=== PATIENT | female | born 1965 | race Caucasian/White ===

== ENCOUNTER 2018-10-26 05:36 | Observation (INO) ==
--- NOTE | 2018-10-21 09:12 | Anesthesiology Consultation ---
Date of Service October 21, 2018 Assessment & Plan (1) Encounter for pre-operative examination: Chart Review Chart Review: Acceptable Risk for Surgery and Patient NOT seen in Pre Admission Testing Consults Requested none History Surgery Operation Date: 10/26/18 11:45 Proposed Procedures p C5-C6 Anterior Cervical Discectomy and Fusion - Jeremy Pugh DO Height/Weight Height: 5 ft 7 in Weight: 95.254 kg Allergies Allergy/AdvReac Type Severity Reaction Status Date / Time No Known Allergies Allergy Unverified 10/20/18 12:09 Medications Home Medications Medication Instructions Recorded Confirmed Last Taken atorvastatin 80 mg PO HS 10/20/18 10/20/18 Unknown bupropion HCl 150 mg PO BID 10/20/18 10/20/18 Unknown buspirone 10 mg PO TID PRN 10/20/18 10/20/18 Unknown levothyroxine 150 mcg PO QAM 10/20/18 10/20/18 Unknown trazodone 100 mg PO HS 10/20/18 10/20/18 Unknown venlafaxine 75 mg PO QAM 10/20/18 10/20/18 Unknown venlafaxine 150 mg PO QAM 10/20/18 10/20/18 Unknown Past Medical History Medical History Anxiety Asthma Depression GERD (gastroesophageal reflux disease) Hx pulmonary embolism 1983 - was on heparin injection and no problems since Hyperlipidemia Hypothyroidism PONV (postoperative nausea and vomiting) Past Surgical History Surgical History History of carpal tunnel release of both wrists History of cholecystectomy History of decompression of ulnar nerve left History of throat surgery vocal cord surgery - removed a polyp History of tonsillectomy Hx of abdominal hysterectomy STOP BANG Total 1 Social History Smoking Status: Current every day smoker tobacco type: cigarettes Smoking cigarettes per day: 5-8 cig a day Do You Dip or Chew Tobacco: No Hx Alcohol Use: Yes Alcohol type: hard liquor Hx Substance Use: No substance use type: does not use Exercise / Class Metabolic Activity II 4-5 Yardwork/Stairs/Walk up hill Testing Electrocardiogram Date: 10/29/17 Findings: + NSR @ (81 bpm) Laboratory Results 10/20/18 WBC 6.6 hgb 11.7 platelet 284 Na 141 K 4.1 Cl 102 CO2 27 BUN 7 Cr 1.0 glucose 140 PT 12.6 PTT 35 INR 0.91
[2018-10-26] MEDS ORDERED: ACETAMINOPHEN 500 MG TAB PO SCH (06:00)
[2018-10-26] MEDS ORDERED: LR 15ML/HR IV SCH (06:00)
[2018-10-26] MEDS ORDERED: CEFAZOLIN 2000MG 2,000 MG/15 ML SYR IV SCH (06:00)
[2018-10-26] MEDS ORDERED: CeleBREX 200 MG CAP PO SCH (06:00)
[2018-10-26] MEDS ORDERED: GABAPENTIN 300 MG x 3 PO SCH (06:00)
[2018-10-26] MEDS ORDERED: ONDANSETRON INJ 2 MG/ML 2 ML VIAL IV PRN ×2 (06:27→10:42)
[2018-10-26] MEDS ORDERED: ePHEDrine sulfate 50 MG/ML AMP IV PRN (06:27)
[2018-10-26] MEDS ORDERED: HYDROmorphone INJ 1 MG/ML SYRINGE IV PRN (06:27)
[2018-10-26] MEDS ORDERED: ATROPINE SULFATE 0.1 MG/ML 5ML SYR IV PRN (06:27)
[2018-10-26] MEDS ORDERED: fentaNYL citrate 100 MCG/2 ML VIAL IV PRN (06:27)
[2018-10-26] MEDS ORDERED: PROMETHAZINE HCL 12.5 MG in SODIUM CHLORIDE 0.9% 50 ML IV PRN (06:27)
[2018-10-26] MEDS ORDERED: PHENYLEPHRINE 100MCG/ML 5ML SYR IV PRN (06:27)
[2018-10-26] MEDS ORDERED: fentaNYL citrate 100 MCG/2 ML VIAL ONE ×3 (06:29→08:37)
[2018-10-26] MEDS ORDERED: MIDAZOLAM HCL 1 MG/ML 2ML VIAL ONE (06:29)
[2018-10-26] MEDS ORDERED: HYDROmorphone INJ 2 MG/ML SYR/VIAL ONE ×2 (06:30)
[2018-10-26] MEDS ORDERED: SCOPOLAMINE 1.5 MG TDSY TD ONE (06:40)
[2018-10-26] MEDS ORDERED: ONDANSETRON INJ 2 MG/ML 2 ML VIAL ONE (06:47)
[2018-10-26] MEDS ORDERED: LIDOCAINE HCL 2% 2 ML VIAL/AMP(20MG/ML) INFIL ONE (06:47)
[2018-10-26] MEDS ORDERED: PROPOFOL IV EMULSION 10 MG/ML 20 ML VIAL IV ONE (06:47)
[2018-10-26] MEDS ORDERED: GLYCOPYRROLATE 0.2 MG/ML VIAL ONE (06:47)
[2018-10-26] MEDS ORDERED: ROCURONIUM BROMIDE 10 MG/ML 5 ML VIAL ONE (06:47)
[2018-10-26] MEDS ORDERED: NEOSTIGMINE METHYLSULFATE 1 MG/ML 10ML VIAL ONE (06:47)
[2018-10-26] MEDS ORDERED: DEXAMETHASONE SOD INJ 4 MG/ML VIAL ONE (06:47)
[2018-10-26] MEDS ORDERED: BACITRACIN INJ 50,000 UNIT VIAL ONE (07:12)
--- NOTE | 2018-10-26 07:37 | History & Physical Bridge Note ---
Date of Service October 26, 2018 History & Physical Bridge Note I have examined the patient, reviewed the History & Physical and in the interval since the performance of the History & Physical I have noted the following changes of clinical significance: no changes noted
--- NOTE | 2018-10-26 07:38 | History & Physical Report ---
Date of Service October 26, 2018 Assessment & Plan (1) Cervical stenosis of spinal canal: Anterior cervical discectomy and fusion C5-6 Present on Admission?: Yes History of Present Illness Chief Complaint: Patient complaining of chronic neck and arm pain. Primary Care Provider: Germania Cameron This is a 53-year-old female with consistent neck and arm pain has failed extensive course of nonoperative care and is here for surgical intervention. Allergies Allergy/AdvReac Type Severity Reaction Status Date / Time No Known Allergies Allergy Unverified 10/26/18 06:10 Home Medications Home Medications Medication Instructions Recorded Confirmed Type atorvastatin 80 mg PO HS 10/20/18 10/26/18 History bupropion HCl 150 mg PO BID 10/20/18 10/26/18 History buspirone 10 mg PO TID PRN 10/20/18 10/26/18 History levothyroxine 150 mcg PO QAM 10/20/18 10/26/18 History trazodone 100 mg PO HS 10/20/18 10/26/18 History venlafaxine 75 mg PO QAM 10/20/18 10/26/18 History venlafaxine 150 mg PO QAM 10/20/18 10/26/18 History Past Med/Surg History Medical History Anxiety Asthma Depression GERD (gastroesophageal reflux disease) Hx pulmonary embolism 1983 - was on heparin injection and no problems since Hyperlipidemia Hypothyroidism PONV (postoperative nausea and vomiting) Surgical History History of carpal tunnel release of both wrists History of cholecystectomy History of decompression of ulnar nerve left History of throat surgery vocal cord surgery - removed a polyp History of tonsillectomy Hx of abdominal hysterectomy Social History Current Living Situation: Spouse Other Information That Helps Us Care for You: No Feels Safe at Home: Yes Safety Concerns: Feels Safe At This Time Smoking Status: Current every day smoker Tobacco Type: cigarettes Cigarettes per Day: 5-8 cig a day Do You Dip or Chew Tobacco: No Hx Alcohol Use: Yes Alcohol type: hard liquor Hx Substance Use: No Beliefs That Will Affect Care: None Preferred Language: British Communication Ability: Effective 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: No Physical Exam 2 Vital Signs (Past 24 Hours): Last Vital Signs Temp 36.9 C 10/26/18 06:24 Pulse 93 H 10/26/18 06:24 Resp 18 10/26/18 06:24 BP 123/89 10/26/18 06:24 Pulse Ox 95 10/26/18 06:24 Results & Data Medications Administered Acetaminophen (Tylenol) 1,000 mg PO PREOP VENESSA Stop: 10/26/18 18:00 Last Admin: 10/26/18 06:19 Dose: 1,000 mg Celecoxib (Celebrex) 200 mg PO PREOP VENESSA Stop: 10/26/18 18:00 Last Admin: 10/26/18 06:19 Dose: 200 mg Gabapentin (Neurontin) 900 mg PO PREOP VENESSA Stop: 10/26/18 18:00 Last Admin: 10/26/18 06:21 Dose: 900 mg Lactated Ringer's (Lr) 1,000 mls @ 15 mls/hr IV .Q24H VENESSA Stop: 10/27/18 05:59 Last Admin: 10/26/18 06:18 Dose: 15 mls/hr
[2018-10-26] MEDS ORDERED: PHENYLEPHRINE 100MCG/ML 5ML SYR ONE (08:37)
[2018-10-26] MEDS ORDERED: ePHEDrine sulfate 50 MG/ML SYR ONE (08:37)
[2018-10-26] MEDS ORDERED: ALBUTEROL HFA INHALER 8.5 GM ONE (08:42)
[2018-10-26] MEDS ORDERED: PHENYLEPHRINE HCL 10 MG/ML VIAL ONE (08:43)
[2018-10-26] MEDS ORDERED: FLOSEAL HEMOSTATIC MATRIX 10ML TOP ONE (08:51)
--- NOTE | 2018-10-26 09:04 | Operative Report ---
Post Operative Report Date of Surgery October 26, 2018 Pre & Post Diagnosis Operation Date: 10/26/18 07:45 Pre-Op Diagnosis: Cervical spinal stenosis with radiculopathy Post-Op Diagnosis: Same Procedure Operation Date: 10/26/18 07:45 Actual Procedures #1 anterior cervical discectomy bilateral foraminotomies C5-6. 2 anterior cervical arthrodesis C5-6. #3 placement of 7 mm cortical allograft filled with DBM C5-6. 4 application moreno plate and screws across C5-6. Surgeon Jeremy Pugh DO Marine Farmer None Estimated Blood Loss 10 Findings Consistent with Post-Op Diagnosis Specimens None Description of Procedure Patient was met with preoperatively case discussed all questions addressed. After informed consent obtained patient was taken to the operative suite underwent intubation and placed in a supine position on the Olu table and Saini head grease maker. All bony prominences well-padded eyes inspected to ensure no external pressure was run. This point the anterior cervical spine was prepped and draped in a sterile fashion. With the assistance of fluoroscopy identified the C5-6 disc space. Transverse incision was placed along the right anterior aspect of the cervical spine. Sharp dissection with the assistance of bipolar electrocautery was performed down to and exposing the anterior cervical spine at C5-6. Self-retaining retractors placed. I then performed a complete discectomy at C5-6 up to the uncovertebral joints bilaterally. [place] distracting pins were utilized to assist in visualization. Removed all posterior annular fibers longitudinal ligament and bilateral foraminotomies performed for complete decompression. Endplates were then burred to subcortical bleeding bone and a 7 mm cortical allograft filled with DBM tamped in position. Distraction apparatus was removed all anterior osteophyte produce smooth cortical surface and a moreno plate and screws applied with the assistance of fluoroscopy. Incision was then copious irrigated explored to ensure no damage to surrounding structures remaining bleeding. 10 round RODRÍGUEZ drain inserted. Incision was then closed with 2 Vicryl in a fashion for Monocryl for final skin closure Steri-Strip sterile dressings placed. Patient will continue to PACU stable condition. I attest to the content of the Intraoperative Record and any orders documented therein. Any exceptions are noted below.
[2018-10-26] MEDS ORDERED: ESMOLOL HCL INJ 10 MG/ML 10ML VIAL IV ONE (09:13)
--- NOTE | 2018-10-26 09:21 | Fluoroscopy Report ---
FL cervical 2-3V CLINICAL HISTORY: C5-C6 ACDF COMPARISON STUDY: None FLUOROSCOPY TIME: 22 seconds. NUMBER OF FLUOROSCOPIC IMAGES: 3 FINDINGS: Intraoperative fluoroscopic spot images reveal postsurgical changes of anterior discectomy and spinal fusion at the C5-6 level with an anterior metallic plate and C5 and C6 screws. IMPRESSION: Postsurgical changes the C5-C6 anterior cervical discectomy and fusion Electronically signed by: Bright Lundy M.D. 10/26/2018 9:20 AM
--- NOTE | 2018-10-26 10:15 | Anesthesiology Progress Note ---
Date of Service October 26, 2018 Anesthesia Post Procedure Vital Signs Vital Signs: Temp Pulse Pulse Resp BP Pulse Ox 10/26/18 10:05 94 H 19 132/74 94 10/26/18 09:55 103 H 17 146/85 H 99 10/26/18 09:45 100 H 14 162/90 H 98 10/26/18 09:35 99 H 14 159/92 H 96 10/26/18 09:25 100 H 19 157/94 H 100 10/26/18 09:17 36.3 C L 82 13 165/102 H 100 10/26/18 06:24 36.9 C 93 H 18 123/89 95 Pain Intensity Left Arm: Pain Intensity: 3 Neck: Pain Intensity: 0 Notes Mental Status: alert / awake / arousable Patient Amnestic to Procedure: Yes Nausea / Vomiting: adequately controlled Pain: adequately controlled Airway Patency, RR, SpO2: stable & adequate BP & HR: stable & adequate Hydration State: stable & adequate Anesthetic Complications: no major complications apparent
[2018-10-26] MEDS ORDERED: NALOXONE HCL 0.4 MG/1 ML VIAL/CARP IV PRN (10:42)
[2018-10-26] MEDS ORDERED: DiphenhydrAMINE HCL 50 MG/ML VIAL IV PRN (10:42)
[2018-10-26] MEDS ORDERED: LORazepam 0.5 MG TAB PO PRN (10:42)
[2018-10-26] MEDS ORDERED: MAGNESIUM HYDROXIDE SUSP 30 ML UDC PO PRN (10:42)
[2018-10-26] MEDS ORDERED: DO NOT ADMINISTER PNEUMOCOCCAL VACCINE PRN (10:42)
[2018-10-26] MEDS ORDERED: HYDROmorphone INJ 0.5 MG/0.5 ML SYR IV PRN (10:42)
[2018-10-26] MEDS ORDERED: DEXAMETHASONE SOD PHOSPHATE 8 MG in SYRINGE 0 ML IV PRN (10:42)
[2018-10-26] MEDS ORDERED: LORazepam 0.5 MG/1 ML VIAL IV PRN (10:42)
[2018-10-26] MEDS ORDERED: RACEPINEPHRINE 2.25% NEBU SOLN 0.5 ML VIAL INH PRN (10:42)
[2018-10-26] MEDS ORDERED: ACETAMINOPHEN 1,000 MG/100 ML VIAL IV PRN (10:42)
[2018-10-26] MEDS ORDERED: DO NOT ADMINISTER FLU VACCINE PRN (10:42)
[2018-10-26] MEDS ORDERED: SCOPOLAMINE 1.5 MG TDSY TD SCH (11:00)
[2018-10-26] MEDS: LACTATED RINGER'S 1,000 ML IV SCH ×2 (14:19→23:23)
[2018-10-26] MEDS: OXYCODONE HCL IR 5 MG TAB (IMMEDIATE RELEASE) PO PRN ×2 (15:53→23:30)
[2018-10-26] MEDS: CHECK SCOPOLAMINE PATCH PLACEMENT SCH ×2 (15:54→23:23)
[2018-10-26] MEDS: CEFAZOLIN 2000MG 2,000 MG/15 ML SYR IV SCH ×2 (15:54→23:23)
[2018-10-26] MEDS ORDERED: CHECK SCOPOLAMINE PATCH PLACEMENT SCH (16:00)
[2018-10-26] MEDS: DOCUSATE SODIUM 100 MG CAP PO SCH (20:58)
[2018-10-26] MEDS: BuPROPion SR 150 MG TABCR PO SCH (20:58)
[2018-10-26] MEDS ORDERED: TRAZODONE HCL 100 MG TAB PO SCH (21:00)
[2018-10-26] MEDS ORDERED: ATORVASTATIN 40 MG TAB PO SCH (21:00)
[2018-10-27] MEDS ORDERED: NALOXONE HCL 0.4 MG/1 ML VIAL/CARP IV PRN (05:48)
[2018-10-27] MEDS ORDERED: LEVOTHYROXINE SODIUM 150 MCG TABLET PO SCH (06:30)
[2018-10-27] MEDS: CEFAZOLIN 2000MG 2,000 MG/15 ML SYR IV SCH (08:28)
[2018-10-27] MEDS: DOCUSATE SODIUM 100 MG CAP PO SCH (08:29)
[2018-10-27] MEDS: CHECK SCOPOLAMINE PATCH PLACEMENT SCH (08:29)
[2018-10-27] MEDS: BuPROPion SR 150 MG TABCR PO SCH (08:29)
[2018-10-27] MEDS ORDERED: VENLAFAXINE HCL XR 150 MG CAPXR PO SCH (09:00)
[2018-10-27] MEDS ORDERED: VENLAFAXINE HCL XR 75 MG CAPXR PO SCH (09:00)
--- NOTE | 2018-10-27 09:23 | Discharge Summary ---
Date of Service October 27, 2018 Admission HPI Per Admitting Provider This is a 53-year-old female with consistent neck and arm pain has failed extensive course of nonoperative care and is here for surgical intervention. Principal Diagnosis Cervical spinal stenosis with radiculopathy Discharge Data Allergies Allergy/AdvReac Type Severity Reaction Status Date / Time No Known Allergies Allergy Unverified 10/26/18 06:10 Consultations 10/26/18 10:42 Consult Case Management - Discharge Planning Routine Procedures Performed Operation Date: 10/26/18 07:45 Actual Procedures p C5-C6 Anterior Cervical Discectomy and Fusion(Not Applicable) - Jeremy Pugh DO Ordered Studies 10/26/18 07:45 FL cervical 2-3V Routine FL fluoroscopy >1hr Routine Hospital Course (1) Cervical stenosis of spinal canal: Patient underwent anterior cervical discectomy and fusion tolerated this well was taken to the orthopedic floor postoperatively. Postoperatively her arm symptoms are markedly improved she is swallowing well. No hoarseness. RODRÍGUEZ drain decreasing appropriately. Subsequently discharged home. Discharge orders and instructions found in the chart for further review. Total Time Total Time Spent Total Time Spent (In Minutes): Not applicable Discharge Plan Discharge Items Patient Disposition: Home - Self-Care Reason For Visit: Spinal Stenosis Discharge Diagnosis: cervical stenosis Discharge Goals: Decrease discomfort Activity: Per 'Additional Instructions' section Non-emergency contact: Primary Care Provider Call non-emergency contact if: you have any medication questions Follow-up/Referrals: Germania Cameron PA-C [Primary Care Provider] - Diet: Regular Addtl Provider Instructions: ACTIVITY RECOMMENDATIONS: SELF CARE INSTRUCTIONS AFTER THORACIC/LUMBAR FUSIONS 1. You may walk to your tolerance. It is good exercise for your legs and back. Expect some back and intermittent leg aches and pains. 2. You may perform "counter-top" level activities (make a sandwich, north with a project, etc.). 3. No bending or lifting of more than 10 pounds or back twisting of any nature (roll like a log when turning in bed). 4. You may ride in a car for 20-30 minutes at a time. No driving until after your first visit with your doctor. 5. Frequent changes of position and restricting sitting to 30 minutes at a time will help limit the amount of back spasms and stiffness you may experience. 6. You may discontinue the use of ambulatory aids (cane, crutches, etc.) once your strength and confidence allow. 7. You may raisin washer the shower and let water strike your incision when you arrive home at least once daily. Do not take a tub bath, sit in a hot tub or go into a swimming pool until after your first recheck in the office. SPECIAL CARE INSTRUCTIONS: VERY IMPORTANT TO READ AND REVIEW A. Your surgical incision has been closed with a cosmetic suture under the skin that will dissolve in about 6 weeks. In 14 days, you can use a pair of clean scissors and cut the suture that is left outside of the skin at the ends of your incision. 1. The small skin tapes can be removed 7 days after surgery if they have not fallen off by that point. 2. You may keep the wound open to air as much as possible to promote healing after post-op day number 5 unless told otherwise by your doctor. 3. If you think the wound looks like it is becoming infected (redness or worsening drainage) and/or you are experiencing fever, chill or worsening back pain and muscle spasms, contact the office so that we may evaluate you as soon as possible. B. Complications are uncommon, but please contact us if you have any signs or symptoms of: 1. wound infection (fever higher than 102.5 degrees F, redness, separation of wound, drainage, or increasing pain from the incision) 2. blood clots in legs (pain, swelling, redness and warmth in legs) 3. urinary tract infection (fever higher than 102.5 degrees F, burning upon urination or increased frequency of urination) 4. nerve problems (inability to walk on your toes or heels, numbness, loss of bowel or bladder control) 5. any other symptoms that concern you C. Please call the office at if you have any concerns or questions about your operation or recovery. D. No smoking! Smoking drastically decreases the chance of a solid fusion. E. Do not take any anti-inflammatory medications (Indocin, Advil, Motrin, Aspirin, Naprosyn, etc.) as these may inhibit the chance of a solid fusion. Tylenol is okay to take for pain. MANAGING PAIN AFTER SPINAL SURGERY 1. Narcotic medication is intended for short-term use and will be provided for surgical pain. Surgical pain usually lasts for a period of 4-6 weeks. Narcotic medication includes Percocet, Vicodin, Darvocet, Tylenol #3 or Lortab. 2. Longer-term pain is more appropriately treated with non-narcotic medication such as Tylenol ES. 3. Muscle spasm is not appropriately treated with narcotics. Muscle relaxers such as Soma, Flexeril or Skelaxin can be used along with Tylenol ES. 4. Remember that we all live with some "aches and pains". This is not unusual or uncommon after an injury or as we get older. a. Back pain is expected and may include muscle spasms for 4 to 6 weeks after surgery. The pain should gradually improve. If the pain worsens for no apparent reason, please contact the office. b. Intermittent leg pain may also be experienced and should not be concerned about unless it worsens for no apparent reason. If so, please contact the office. 5. We will provide appropriate medication within the normal guidelines of their prescribed use. We will also be very cautious and aware of potential abuse and extended duration of patients' medication needs. a. Pain medications are for your comfort and to assist with sleep and rest so that the tissue can heal. They are not provided in order to return to normal activity and should not be used through the day. To do so or worsening pain at night can result from ongoing tissue damage and development of tolerance to the prescribed medicine. 6. Please allow 2-3 days to process refills. Prescriptions will not be mailed but must be picked up at the office. FOLLOW UP VISIT: Keep your scheduled follow-up appointment. Any questions, please call the office at . Prescriptions: New oxycodone 5 mg Tablet 5 mg PO Q4H PRN (Reason: Pain) 30 Days Qty: 30 RF: 0 Continue atorvastatin 80 mg Tablet 80 mg PO HS RF: 0 venlafaxine 75 mg Tablet 75 mg PO QAM RF: 0 venlafaxine 150 mg Capsule,Extended Release 24hr 150 mg PO QAM RF: 0 trazodone 100 mg Tablet 100 mg PO HS RF: 0 buspirone 10 mg Tablet 10 mg PO TID PRN (Reason: Anxiety) RF: 0 levothyroxine 150 mcg Capsule 150 mcg PO QAM RF: 0 bupropion HCl [Wellbutrin SR] 150 mg Tablet Sustained-Release 12 Hr 150 mg PO BID RF: 0 Stand-Alone Forms: [facility] Discharge Orders: Discharge Order (Routine); Ordered 10/27/18 Ordered By: Jeremy Pugh Admission Data Admit Date/Time: 10/26/18 09:14 Attending Provider: Jeremy Pugh Admit Provider: Jeremy Pugh Primary Care Provider: Germania Cameron Service: Surgical Services
[2018-10-28] MEDS ORDERED: POLYETHYLENE (MIRALAX) 17 GM PACK PO PRN (09:12)
[2018-10-28] MEDS ORDERED: BISACODYL 5 MG TABEC PO PRN (09:12)
== END 2018-10-27 10:54 | disposition home or self-care (01) ==
LOC: ASU 05:36 → 3N 05:36